=== PATIENT | male | born 1980 | race Caucasian/White ===

== ENCOUNTER 2019-04-13 18:57 | Inpatient (IN) | payer MEDICAID ==
[~2019-04-13] VITALS: Ht 177.8 cm; Wt 159.9 kg
[2019-04-13] MEDS ORDERED: INSULIN REGULAR (HUMULIN R) 300UNITS/3ML SUBCUT ONE (19:45)
[2019-04-13] MEDS ORDERED: SODIUM CHLORIDE 0.9% 1,000 ML IV ONE (19:45)
[2019-04-13 20:33] LABS: BASOPHILS % 0.5 % (0.0-2.0); HEMATOCRIT. 39.1 % (42.0-52.0); HEMOGLOBIN. 13.2 g/dL (14.0-18.0); LYMPHOCYTES % 29.1 % (20.0-50.0); MEAN CORPUSCULAR HEMOGLOBIN 28.6 pg (28.0-32.0); MEAN CORPUSCULAR VOLUME 84.7 fL (80.0-94.0); MEAN PLATELET VOLUME 9.1 fl (7.4-10.4); NEUTROPHILS % 62.4 % (40.0-76.0); PLATELET 183 x1000/uL (130-400); RED BLOOD CELL COUNT 4.62 mill/uL (4.7-6.1); RED CELL DISTRIBUTION WIDTH 13.2 % (11.6-14.6)
[2019-04-13 20:35] LABS: CHLORIDE 105 mEq/L (98-107)
[2019-04-13] MEDS ORDERED: ASPIRIN 81MG TABLET PO ONE (21:30)
[2019-04-13] MEDS ORDERED: HYDRALAZINE 20MG/ML VIAL IV NR (22:00)
[2019-04-14 01:29] VITALS: BP 154/87
[2019-04-14] MEDS ORDERED: INSU100I28 SQ ×2 (02:00→14:25)
[2019-04-14] MEDS ORDERED: METF-414 PO ×2 (02:00→14:25)
[2019-04-14] MEDS ORDERED: HYDROCODONE/ACETAMINOPHEN 5/325MG TABLET PO PRN (02:30)
[2019-04-14] MEDS ORDERED: DEXTROSE 50% WATER 50ML SYRINGE IV PRN ×2 (02:30→14:15)
[2019-04-14 04:00] VITALS: BP 162/80
[2019-04-14] MEDS: BLOOD SUGAR DIAGNOSTIC STRIP TEST SCH ×2 (06:30→12:20)
[2019-04-14] MEDS ORDERED: METFORMIN HCL 500MG TABLET PO SCH (07:50)
[2019-04-14] MEDS ORDERED: LISINOPRIL 20MG TABLET PO SCH (09:00)
[2019-04-14] MEDS ORDERED: AMLODIPINE 10MG TABLET PO SCH (09:00)
[2019-04-14] MEDS ORDERED: ASPIRIN 325MG EC TABLET PO SCH (09:00)
[2019-04-14] MEDS ORDERED: INSULIN GLARGINE UD 100 UNITS/ML SYR SUBCUT SCH (10:00)
[2019-04-14] MEDS: INSULIN LISPRO 100 UNITS/ML SUBCUT SCH ×2 (10:45→13:28)
[2019-04-14] MEDS ORDERED: CLONIDINE 0.1MG TABLET PO PRN (14:15)
[2019-04-14] MEDS ORDERED: IPRATROPIUM/ALBUTEROL 0.5-3(2.5)MG/3ML NEB NEB PRN (14:15)
[2019-04-14] MEDS ORDERED: ONDANSETRON HCL 4MG/2ML INJ IV PRN (14:15)
[2019-04-14] MEDS ORDERED: MAGNESIUM/ALUMINUM HYDROXIDE/SIMETHICONE 30ML UDC PO PRN (14:15)
[2019-04-14] MEDS ORDERED: PANTOPRAZOLE SODIUM 40 MG/VIAL IV SCH (14:15)
[2019-04-14] MEDS ORDERED: DOCUSATE SODIUM 100MG CAPSULE PO PRN (14:15)
[2019-04-14] MEDS ORDERED: DIPHENHYDRAMINE 50MG/ML VIAL IV PRN (14:15)
[2019-04-14 15:56] VITALS: BP 142/85
[2019-04-14] MEDS ORDERED: BLOOD SUGAR DIAGNOSTIC STRIP TEST SCH (17:20)
[2019-04-14] MEDS ORDERED: ENOXAPARIN 40MG/0.4ML SYR SUBCUT SCH (21:00)
== END 2019-04-14 17:20 | disposition home or self-care (01) | DRG 199 ==
LOC: ER 19:12 → 6WST 22:01 → ENRESERV 23:58
PROVIDERS: ADMIT Internal Medicine; ATTEND Internal Medicine
DX: I16.0 Hypertensive urgency (principal); E11.65 Type 2 diabetes mellitus with hyperglycemia; R10.9 Unspecified abdominal pain; E66.9 Obesity, unspecified; Z91.14 Patient's other noncompliance with medication regimen; Z68.43 Body mass index [BMI] 50.0-59.9, adult
CPT/HCPCS: 36415; 71045; 80053; 82962; 83880; 84484; 85025; 93005; 93970; 96372; 99291; J1815; J7030